=== PATIENT | male | born 1955 | race Caucasian/White ===

== ENCOUNTER → 2017-08-08 | Outpatient (CLI) | payer BC ==
[~2017-08-08] MED LIST: AMOX500T PO; ASPI81TA23 PO; BENZ100 PO; CALC1TAB87 PO; ECASA81 PO; HYDR-3580 PO; ZITH250T PO
[2017-08-08 09:52] LABS: PROTHROMBIN TIME - PATIENT 10.5 SEC (9.8-11.6)
[2017-08-08 11:00] LABS: BILIRUBIN, URINE NEG (NEG); BLOOD, URINE MOD (NEG); GLUCOSE,URINE NEG (NEG); KETONE, URINE NEG (NEG); NITRITE,URINE NEG (NEG); PH, URINE 5.5 (5.0-8.5); URINE COLOR YELLOW (YELLW/STRAW); URINE LEUKOCYTE ESTERASE NEG (NEG)
[2017-08-08 11:12] LABS: BACTERIA, URINE RARE /hpf; SQUAMOUS EPITHELIAL CELL URINE <1 /hpf (0-5)
== END ==
LOC: CPRE 09:05
PROVIDERS: ATTEND Orthopaedic Surgery
DX: Z01.812 Encounter for preprocedural laboratory examination (principal); M17.11 Unilateral primary osteoarthritis, right knee; M79.609 Pain in unspecified limb
CPT/HCPCS: 36415; 81001; 85610; 85730

== ENCOUNTER 2017-08-18 05:37 | Inpatient (IN) | payer BC ==
[~2017-08-18] VITALS: Ht 175.3 cm; Wt 95.3 kg
[~2017-08-18 05:37] MED LIST changes: -BENZ100 PO; -ECASA81 PO; -HYDR-3580 PO; -ZITH250T PO
[2017-08-18] MEDS ORDERED: FAT EMULSION 20% INJ 0 ML ONE (05:52)
[2017-08-18] MEDS ORDERED: ACETAMINOPHEN 1000 MG/100 ML 100 ML IV ONE (05:56)
[2017-08-18] MEDS ORDERED: BUPIVACAINE PF 0.75% DEX-WATER INJ 2 ML AMP ONE (05:57)
[2017-08-18] MEDS ORDERED: PROPOFOL 500 MG/50 ML INJ 100 ML ONE (05:58)
[2017-08-18 06:15] VITALS: PULSE 62
[2017-08-18] MEDS ORDERED: METOPROLOL TARTRATE 25 MG TAB PO PRN (06:15)
[2017-08-18] MEDS ORDERED: LACTATED RINGER'S 1000 ML IV PRN (06:15)
[2017-08-18] MEDS ORDERED: CHLORHEXIDINE GLUCONATE 2 % 1 PACK (2 CLOTHS) TOPICAL PRN (06:15)
[2017-08-18] MEDS ORDERED: CHLORHEXIDINE GLUCONATE 4% SOLN 120 ML BTL TOPICAL SCH (06:15)
[2017-08-18] MEDS ORDERED: POVIDONE IODINE 5% (ANTISEPSIS KIT) 4 APPLICATIONS EACH NARE PRN (06:15)
[2017-08-18] MEDS ORDERED: SODIUM CHLORID 0.9% 500 ML IV PRN (06:15)
[2017-08-18] MEDS ORDERED: ceFAZolin 2 GM PREMIX 50 ML IV SCH (06:15)
[2017-08-18] MEDS ORDERED: MIDAZOLAM HCL 2 MG/2 ML VIAL ONE (06:19)
[2017-08-18] MEDS ORDERED: BUPIVACAINE LIPOSOME PF 1.3% 20 ML VIAL ONE (06:20)
[2017-08-18] MEDS ORDERED: GENTAMICIN SULFATE 80 MG/2 ML VIAL ONE (06:25)
[2017-08-18] MEDS ORDERED: MIDAZOLAM HCL 5 MG/5 ML VIAL IV PUSH ONE (06:30)
--- NOTE | 2017-08-18 06:57 | HHI.FF ---
Face to Face Verification Diagnosis: (1) Status post total right knee replacement Physical Therapy Gait training Knee: Total knee, Protocol: Right, Gait training, Full weight bearing Right LE Weight Bearing: WB as tolerated Right LE Range of Motion: Active ROM (AROM, AAROM, PROM. Range of motion goal is 0 extension to 135 of flexion which is what was achieved in the operating room.) Nursing Nursing: Dressing changes Dressing Changes: Daily dressing change, Coverderm/Primapore I have seen patient Chris Choudhury on 08/18/17. My clinical findings support the need for the requested home health care services because: Ltd mobility - disease progression Limited ability to care for self High risk of falls I certify that my clinical findings support that this patient is homebound because: Post-op weakness Unsteady gait/balance Unsafe to leave home unassisted Willie Tafoya MD (Charles) August 18, 2017 06:57
[2017-08-18] MEDS ORDERED: ECASA81 PO (06:58)
[2017-08-18] MEDS ORDERED: ACETAMINOPHEN/HYDROcodone 325 MG/7.5 MG TAB PO PRN ×2 (07:00→09:00)
[2017-08-18] MEDS ORDERED: EXPAREL PERI-ARTICULAR INJECTION (TOTAL VOL. 60 ML) P-ARTICULR SCH ×2 (07:00)
[2017-08-18] MEDS ORDERED: TRANEXAMIC ACID IV SCH ×3 (07:00→11:00)
[2017-08-18] MEDS ORDERED: ZOLPIDEM TARTRATE 5 MG TAB PO PRN (07:00)
[2017-08-18] MEDS ORDERED: SODIUM CHLORIDE 0.9% IV SCH ×3 (07:00→11:00)
[2017-08-18] MEDS ORDERED: Post-op Orders (for Pharmacy) XX ONE (07:00)
--- NOTE | 2017-08-18 07:01 | HHI.FF ---
Face to Face Verification Nursing Additional Instructions Do not remove Dermabond Dwighto. I have seen patient Chris Choudhury on 08/18/17. My clinical findings support the need for the requested home health care services because: I certify that my clinical findings support that this patient is homebound because: Willie Tafoya MD (Charles) August 18, 2017 07:01
[2017-08-18] MEDS ORDERED: BUPIVACAINE LIPOSO PF 1.3% INJ 20 ML in SODIUM CHLORIDE 0.9% INJ 80 ML P-ARTICULR SCH (07:15)
[2017-08-18] MEDS ORDERED: FAMOTIDINE 20 MG/2 ML VIAL ONE (08:18)
[2017-08-18] MEDS ORDERED: MORPHINE SULFATE 4 MG/ML INJ IV PUSH PRN (09:00)
[2017-08-18] MEDS ORDERED: MAGNESIUM HYDROXIDE SUSP 30 ML CUP PO PRN (09:00)
[2017-08-18] MEDS ORDERED: ONDANSETRON ODT 4 MG TAB PO PRN (09:00)
[2017-08-18] MEDS ORDERED: PROPOFOL 500 MG/50 ML INJ 50 ML ONE (09:45)
[2017-08-18] MEDS ORDERED: HYDR-3580 PO (09:48)
--- NOTE | 2017-08-18 09:57 | PD.OP ---
Operative Report Date of Surgery: August 18, 2017 Preoperative Diagnosis: (1) Primary osteoarthritis of right knee Postoperative Diagnosis: (1) Primary osteoarthritis of right knee Procedure: Right total knee arthroplasty using [place] Triathlon prosthesis (noncemented). Anesthesia: Spinal with supplemental abductor canal block regional and local with Exparel Surgeon: Nam Tafoya MD Layboy Tender(s): RIGOBERTO Quinteros Operation and Findings: Indications and Findings: This 61-year-old man has had 4 years of progressive worsening of right knee pain due to arthritis. He is limited in his ambulation has difficulty with stairs. He has difficulty driving. He has difficulty standing from a seated position. He has tried anti-inflammatory agents analgesics, intra-articular, corticosteroid injections and activity modification without any benefit. Physical findings showed genuine varum with tenderness particularly in the medial compartment. There is also medial laxity and some crepitation. X-rays showed loss of articular cartilage to bone on bone on the PA flexion view with osteophytes and eburnation. Operative findings: There was tricompartmental arthritis particularly in the medial compartment but also in the patellofemoral and to a lesser extent lateral compartment. The prosthesis used was a [place] Triathlon prosthesis. The femur was a size 7, cruciate retaining, uncemented. The tibial baseplate was a size 7 Tritanium with a 9 mm cruciate retaining X3 polyethylene spacer. The patella was a size 38 mm asymmetric Tritanium backed. The patient was brought to the clean-air operating suite. A spinal anesthetic was administered as well as a regional anesthetic by adductor canal block. The position was supine with a small bolster under the hip on the operative side. A pneumatic tourniquet was applied to the upper thigh. The lower extremity was then prepped with alcohol, Hibiclens and ChloraPrep and draped in the usual manner with the knee draped free. An appropriate timeout procedure was carried out. An incision was made from about 3 fingerbreadths above the superior medial pole of patella down the tibial tubercle on the medial side. The incision was deepened through the subcutaneous tissue to the retinacular structures which were exposed medially and laterally. A medial retinacular incision was then made from the superior middle pole of patella down the tibial tubercle and up into the quadriceps tendon splitting it longitudinally and the medial one third. The patella was reflected. The infrapatellar fat pad was debulked. The anterior cruciate ligament was excised. Medial and lateral meniscectomies were initiated. Fenestrations were made in the distal femur and proximal tibia for intramedullary referencing guides. The distal femoral cutting guide and jig were then assembled for a 5, 8 mm cut. When this was fit position and placed cutting block was stabilized with pins. The jig was removed. The distal femoral cut was then completed with the oscillating saw. The sizing guide was then positioned in place along Whitesides line and the epicondylar axis and stabilized with pins. The femoral size was then determined as noted above. The 4-in-1 cutting block was then positioned in place. Anterior and posterior cuts were made followed by posterior and anterior chamfer cuts taking care to prevent injury to ligamentous structures. Osteophytes were then trimmed from the distal femur. A bone plug was then placed into the fenestration of the distal femur. The proximal tibia was then exposed. The medial and lateral meniscectomies were completed. The proximal tibial cutting guide was then positioned in place and stabilized with a pin for rotation. The depth of cut was then verified with a stylus off the lateral side. The cutting block was stabilized with pins. The jig was removed. The depth of cut was then verified and adjusted appropriately with the use of the spacer block. The proximal tibial cut was then made with the oscillating saw taking care to prevent injury to neurovascular and ligamentous structures. Proximal tibial bone was removed. Local anesthetic was administered with Exparel in the posterior capsule. The tibial baseplate trial was then positioned in place. After verifying the appropriate size, the base plate trial was positioned in place along with its spacer. The femoral component was then impacted into place. The alignment was checked. The tibial baseplate was then pinned in place on the tibia. Attention was directed to the patella. The patella drill guide was positioned in place for the appropriate sized patella. Patellar drilling was then carried out. The trial patella was positioned in place. The knee was taken through a range of motion which was easily 0 extension to 135. The patella trial was removed. The femoral drill holes were made. The femoral trials were removed. The tibial spacer was removed. A bone plug was placed into the proximal tibia. The tibial punch was impacted through the proximal tibial punch guide. This was all removed followed by placement of the tibial drill guide. The tibial drill holes were then made. The guide was removed. The cut ends of bone were then cleaned with pulse lavage. The tibial baseplate was then impacted into place and seated appropriately. The spacer was inserted. The the femoral component was then impacted into place and seated appropriately. The patella component was then seated with the patellar vice and tightened appropriately. The knee was taken through a range of motion which was comparable to the previous range of motion with excellent stability in flexion and extension and appropriate patellofemoral tracking. The remainder of the Exparel was then injected throughout the knee as a local anesthetic. Drains were brought out the superior lateral aspect of the suprapatellar pouch. Wound closure then commenced using 0 Vicryl interrupted [id number] sutures for the capsular and fascial structures, 2-0 Vicryl interrupted simple sutures with buried knots for the subcutaneous tissues and 4- 0 Monocryl, continuous subcuticular closure for the skin. The wound was then dressed with Dermabond Prineo followed by Optifoam silver impregnated dressing. Sterile soft roll with a cooling pad and Fam bandage from the base of the toes to mid thigh were then applied. Patient was then transferred from the operating room to the recovery room in satisfactory condition having tolerated procedure well. Counts are correct. Specimens: None. Estimated blood loss: 300 mL Willie Tafoya MD (Charles) August 18, 2017 09:57
[2017-08-18] MEDS ORDERED: DO NOT ADM ANY ANTICOAGULANT DRUGS PRN (10:30)
[2017-08-18] MEDS: LACTATED RINGER'S 1000 ML INJ 1,000 ML IV SCH ×2 (10:48→20:44)
[2017-08-18 11:30] VITALS: BP 157/98; PULSE 79; RESP 16; TEMP 98.3; O2SAT 95
--- NOTE | 2017-08-18 11:33 | RADRPT ---
EXAM DATE/TIME: 08/18/2017 11:55 [facility] COMPARISON: No previous studies available for comparison. INDICATIONS : Post op right knee surgery MEDICAL HISTORY : None. SURGICAL HISTORY : None. ENCOUNTER: Initial ACUITY: 1 day PAIN SCORE: 4/10 LOCATION: Right knee FINDINGS: Postsurgical features of right knee arthroplasty. Arthroplasty components are in anatomic alignment. No significant acute bony fracture. Immediate postsurgical soft tissue features. CONCLUSION: 1. Status post right knee arthroplasty in anatomic alignment without significant acute bony fracture. Tone Steven MD on August 18, 2017 at 11:30 Board Certified Radiologist. This report was verified electronically.
[2017-08-18 12:00] VITALS: BP 157/98; PULSE 79; RESP 16; TEMP 98.3; O2SAT 95
[2017-08-18] MEDS ORDERED: ePHEDrine/NS 25 MG/5 ML SYRINGE IV ONE (12:00)
[2017-08-18] MEDS ORDERED: DEXAMETHASONE SOD PHOS 4 MG/ML VIAL IV ONE (12:00)
[2017-08-18] MEDS ORDERED: LACTATED RINGER'S 1000 ML INJ 1,000 ML IV ONE (12:00)
[2017-08-18] MEDS ORDERED: PROPOFOL 200 MG/20 ML AMP IV ONE (12:00)
[2017-08-18] MEDS ORDERED: LIDOCAINE HCL 1% PF 5 ML SYRINGE OTHER ONE (12:00)
--- NOTE | 2017-08-18 12:54 | PD.CONS ---
HPI Service [facility] Consult Requested By Dr. Tafoya Reason for Consult Opinion and recommendation on patient's elevated blood pressure. Primary Care Physician No Primary Care Physician Diagnoses: History of Present Illness 61-year-old white male with history of osteoarthritis who was had no significant past medical history has had long history of right knee pain despite conservative treatment electively underwent a right total knee arthroplasty today. He denies a history of constipation or any previous history of blood in the stools or black tarry stools. He has no active complaints at this time. He denies a history of headaches and denies any history of elevated blood pressures or hypertension in the past. Review of Systems Constitutional: DENIES: Fatigue, Fever, Chills, Change in appetite Endocrine: DENIES: Heat/cold intolerance Eyes: DENIES: Blurred vision, Eye pain, Vision loss Ears, nose, mouth, throat: DENIES: Hearing loss, Nasal discharge, Throat pain, Ear Pain, Sinus Pain Respiratory: DENIES: Cough, Shortness of breath Cardiovascular: DENIES: Chest pain, Palpitations, Dyspnea on Exertion, Lower Extremity Edema Gastrointestinal: DENIES: Abdominal pain, Black stools, Bloody stools, Constipation, Diarrhea, Nausea, Vomiting Musculoskeletal: COMPLAINS OF: Joint pain (Right knee pain as described in HPI) , DENIES: Muscle aches, Stiffness Integumentary: DENIES: Rash Hematologic/lymphatic: DENIES: Bruising, Lymphadenopathy Immunologic/allergic: DENIES: Eczema Neurologic: DENIES: Headache, Localized weakness, Paresthesias Psychiatric: DENIES: Anxiety, Depression, Suicidal Ideation Past Family Social History Allergies: Coded Allergies: No Known Allergies (Unverified , 08/08/17) Past Medical History Early cataracts osteoarthritis Past Surgical History Right knee arthroscopic surgery Right shoulder surgery Left hammertoe Reported Medications Aspirin 81 mg p.o. daily Calcium supplements 1 p.o. daily Cody one every 4 hours as needed for pain Family History Father had prostate problems Hypertension Diabetes mellitus End-stage renal disease Social History Does not smoke cigarettes quit when he was 33 years Social alcohol use Physical Exam Vital Signs Vital Signs Date Time Temp Pulse Resp B/P (MAP) Pulse Ox O2 Delivery O2 Flow Rate FiO2 08/18/17 12:00 98.3 79 16 157/98 (117) 95 08/18/17 11:30 98.3 79 16 157/98 (117) 95 08/18/17 11:00 97.5 78 14 148/89 (108) 98 Nasal Cannula 2 08/18/17 10:45 83 15 146/90 (108) 98 Nasal Cannula 3 08/18/17 10:30 85 20 141/86 (104) 98 Simple Mask 6 08/18/17 10:25 97.5 78 20 136/85 (102) 96 Simple Mask 6 08/18/17 06:15 62 08/18/17 06:15 98 Nasal Cannula 2 08/18/17 06:08 58 58 141/88 (105) 97 Physical Exam GENERAL: This is a well-nourished, well-developed patient, in no apparent distress. SKIN: No rashes, ecchymoses or lesions. Cool and dry. HEAD: Atraumatic. Normocephalic. No temporal or scalp tenderness. EYES: Pupils equal round and reactive. Extraocular motions intact. No scleral icterus. No injection or drainage. ENT: Nose without bleeding, purulent drainage or septal hematoma. Throat without erythema, tonsillar hypertrophy or exudate. Uvula midline. Airway patent. NECK: Trachea midline. No JVD or lymphadenopathy. Supple, nontender, no meningeal signs. CARDIOVASCULAR: Regular rate and rhythm without murmurs, gallops, or rubs. RESPIRATORY: Clear to auscultation. Breath sounds equal bilaterally. No wheezes , rales, or rhonchi. GASTROINTESTINAL: Abdomen soft, non-tender, nondistended. No hepato-splenomegaly , or palpable masses. No guarding. MUSCULOSKELETAL: Extremities without clubbing, cyanosis, or edema. No joint tenderness, effusion, or edema noted. No calf tenderness. Negative Homans sign bilaterally. NEUROLOGICAL: Awake and alert. Cranial nerves II through XII intact. Motor and sensory grossly within normal limits. Five out of 5 muscle strength in all muscle groups. Normal speech. Imaging Last Impressions Knee X-Ray 08/18/17 0651 Signed Impressions: Service Date/Time: Friday, August 18, 2017 11:55 - CONCLUSION: 1. Status post right knee arthroplasty in anatomic alignment without significant acute bony fracture. Tone Steven MD Assessment and Plan Assessment and Plan 1. Right total knee arthroplasty- continue postoperative care, pain control, physical therapy 2. Elevated blood pressure likely due to pain, will continue monitor postoperatively, patient states he has no history of hypertension. Will provide IV Vasotec as needed further recommendations based on blood pressure trends. 3. DVT prophylaxis -per orthopedic surgery. Chen Simmons MD August 18, 2017 12:54
[2017-08-18] MEDS ORDERED: ENALAPRILAT 1.25 MG/ML VIAL IV PUSH PRN (13:00)
[2017-08-18] MEDS: KETOROLAC TROMETHAMINE 30 MG/ML (IVP) VIAL IVP SCH ×2 (13:47→20:44)
[2017-08-18 16:25] VITALS: BP 143/82; PULSE 81; RESP 17; TEMP 98.2; O2SAT 94
[2017-08-18 19:22] VITALS: BP 140/87; PULSE 74; RESP 18; TEMP 97.9; O2SAT 95
[2017-08-18 23:16] VITALS: BP 135/84; PULSE 79; RESP 18; TEMP 98.3; O2SAT 94
[2017-08-19] MEDS: KETOROLAC TROMETHAMINE 30 MG/ML (IVP) VIAL IVP SCH ×3 (01:10→12:43)
[2017-08-19 04:05] VITALS: BP 145/80; PULSE 79; RESP 18; TEMP 98; O2SAT 95
[2017-08-19 05:55] LABS: HEMOGLOBIN 13.4 GM/DL (13.0-17.0)
--- NOTE | 2017-08-19 06:05 | PD.ORT.PN ---
Subjective Post Op Day #: 1 Subjective Remarks He is doing well. He has no real complaints today. He is anxious to go home. Range of Motion 0 extension to 88 of flexion. Distance Walked 155 feet with physical therapy. Objective Vitals Vital Signs Date Time Temp Pulse Resp B/P (MAP) Pulse Ox O2 Delivery O2 Flow Rate FiO2 08/19/17 04:05 98.0 79 18 145/80 (101) 95 08/18/17 23:16 98.3 79 18 135/84 (101) 94 08/18/17 19:22 97.9 74 18 140/87 (104) 95 08/18/17 16:25 98.2 81 17 143/82 (102) 94 08/18/17 15:27 20 08/18/17 12:00 98.3 79 16 157/98 (117) 95 08/18/17 11:30 98.3 79 16 157/98 (117) 95 08/18/17 11:00 97.5 78 14 148/89 (108) 98 Nasal Cannula 2 08/18/17 10:45 83 15 146/90 (108) 98 Nasal Cannula 3 08/18/17 10:30 85 20 141/86 (104) 98 Simple Mask 6 08/18/17 10:25 97.5 78 20 136/85 (102) 96 Simple Mask 6 08/18/17 06:15 62 08/18/17 06:15 98 Nasal Cannula 2 08/18/17 06:08 58 58 141/88 (105) 97 I/O 08/18/17 08/18/17 08/18/17 08/19/17 08/19/17 08/19/17 07:00 15:00 23:00 07:00 15:00 23:00 Intake Total 1400 ml 750 ml Output Total 340 ml 180 ml 85 ml Balance 1060 ml 570 ml -85 ml Intake Oral 750 ml Other 1400 ml Output Drainage Total 40 ml 180 ml 85 ml Estimated Blood Loss 300 ml # Voids 2 # Bowel Movements 0 Result Diagram: 08/19/17 0405 Imaging Last 24 hours Impressions Knee X-Ray 08/18/17 0651 Signed Impressions: Service Date/Time: Friday, August 18, 2017 11:55 - CONCLUSION: 1. Status post right knee arthroplasty in anatomic alignment without significant acute bony fracture. Tone Steven MD Objective Remarks He is resting comfortably, supine in bed, in the [facility]. His dressing is dry and intact. The neurovascular status is intact. Assessment & Plan Ortho Post Op Day #: 1 Problem List: (1) Primary osteoarthritis of right knee ICD Codes: M17.11 - Unilateral primary osteoarthritis, right knee Status: Resolved (2) Status post total right knee replacement ICD Codes: Z96.651 - Presence of right artificial knee joint Plan: Continue postop care and PT. Assessment and Plan Condition: Good. Orthopedically stable. DVT prophylaxis: TEDs, aspirin, sequentials. Discharge plans: Home with home health care. An appointment was scheduled through the office. Prescriptions: [place] 7.5/325 Willie Tafoya MD (Charles) August 19, 2017 06:05
[2017-08-19 08:00] VITALS: BP 132/72; PULSE 67; RESP 16; TEMP 98.4; O2SAT 96
[2017-08-19] MEDS ORDERED: ASPIRIN EC 81 MG TABEC PO SCH (09:30)
[2017-08-19] MEDS: LACTATED RINGER'S 1000 ML INJ 1,000 ML IV SCH (10:00)
[2017-08-19 12:00] VITALS: BP 131/74; PULSE 66; RESP 16; TEMP 98.2; O2SAT 97
--- NOTE | 2017-08-19 12:28 | HHI.PR ---
Subjective Remarks Patient sitting on side of bed. Just walked the aguayo with PT. Denies any chest pain or sob. Objective Vitals Vital Signs Date Time Temp Pulse Resp B/P (MAP) Pulse Ox O2 Delivery O2 Flow Rate FiO2 08/19/17 12:00 98.2 66 16 131/74 (93) 97 08/19/17 08:00 98.4 67 16 132/72 (92) 96 08/19/17 04:05 98.0 79 18 145/80 (101) 95 08/18/17 23:16 98.3 79 18 135/84 (101) 94 08/18/17 19:22 97.9 74 18 140/87 (104) 95 08/18/17 16:25 98.2 81 17 143/82 (102) 94 08/18/17 15:27 20 I/O 08/18/17 08/18/17 08/18/17 08/19/17 08/19/17 08/19/17 07:00 15:00 23:00 07:00 15:00 23:00 Intake Total 1400 ml 750 ml 460 ml Output Total 340 ml 180 ml 85 ml 50 ml Balance 1060 ml 570 ml 375 ml -50 ml Intake Oral 750 ml 360 ml IV Total 100 ml Other 1400 ml Output Drainage Total 40 ml 180 ml 85 ml 50 ml Estimated Blood Loss 300 ml # Voids 2 2 # Bowel Movements 0 0 Result Diagram: 08/19/17 0405 Objective Remarks SKIN: Warm and dry. dressing dry and intact CARDIOVASCULAR: Regular rate and rhythm. RESPIRATORY: No accessory muscle use. Clear to auscultation. Breath sounds equal bilaterally. GASTROINTESTINAL: Abdomen soft, non-tender, nondistended. Hepatic and splenic margins not palpable. MUSCULOSKELETAL: Extremities without clubbing, cyanosis, or edema. No obvious deformities. NEUROLOGICAL: Awake and alert. No obvious cranial nerve deficits. Motor grossly within normal limits. Normal speech. PSYCHIATRIC: Appropriate mood and affect; insight and judgment normal. A/P Assessment and Plan Right total knee arthroplasty - continue postoperative care, pain control, physical therapy per ortho Elevated blood pressure likely due to pain, resolved -Will provide IV Vasotec as needed further recommendations based on blood pressure trends. DVT prophylaxis -per orthopedic surgery Hospitalist will sign off, please re-consult if needed Discharge Planning per ortho Rachael Khan August 19, 2017 12:28
--- NOTE | 2017-08-19 12:34 | HHI.DS ---
Discharge Summary Admission Date August 18, 2017 at 05:37 Discharge Date: August 19, 2017 Admitting Diagnosis Primary osteoarthritis, right knee. Diagnosis: (1) Primary osteoarthritis of right knee Diagnosis: Principal ICD Codes: M17.11 - Unilateral primary osteoarthritis, right knee Status: Resolved (2) Status post total right knee replacement Diagnosis: Principal ICD Codes: Z96.651 - Presence of right artificial knee joint Procedures Right total knee arthroplasty using [place] Triathlon prosthesis (uncemented) on 08/18/2017 Brief History This is a 61 year old male patient CBC/BMP: 08/19/17 0405 Significant Findings Laboratory Tests Test 08/19/17 04:05 Imaging Last 72 hours Impressions Knee X-Ray 08/18/17 0651 Signed Impressions: Service Date/Time: Friday, August 18, 2017 11:55 - CONCLUSION: 1. Status post right knee arthroplasty in anatomic alignment without significant acute bony fracture. Tone Steven MD PE at Discharge He is resting comfortably, supine in bed, in the [facility]. His dressing is dry and intact. The neurovascular status is intact. Hospital Course The patient was admitted as noted above. The above noted operative procedure was carried out that day. Preoperatively prophylactic antibiotics were administered Ancef according to protocol. These were continued postoperatively. The patient also received tranexamic acid to help with hemostasis according to protocol. In the postanesthesia care unit a continuous passive motion device was initiated. Also initiated were mechanical methods of DVT prophylaxis in the form of LINDSEY stockings and sequentials. Physical therapy was initiated on the day of surgery. On postoperative day #1 physical therapy continued. The use of the continuous passive motion device continued. DVT prophylaxis with aspirin 81 mg was initiated at this time. The patient continued physical therapy throughout the hospitalization. The distance walked and range of motion improved throughout the hospitalization. The patient was discharged on postoperative day 1 with the disposition being to home with home health care. An appointment for follow-up was made prior to admission. Pt Condition on Discharge: Good Discharge Disposition: Disch w/ Home Health Serv Discharge Instructions Diet Instructions: As Tolerated, No Restrictions Activities You Can Perform: Full Weight Bearing, Shower Only-No Bath Activities to Avoid: Lifting/Bending, Strenuous Activity, Bathing, Driving Follow up Referrals: Orthopedics with Willie Tafoya MD (Charles) New Medications: Aspirin DR (Aspirin DR) 81 Mg Tabdr 81 MG PO BID for Prevent Blood Clot for 30 Days, #60 TAB Hydrocodone/Acetaminophen (Hydrocodone-Acetamin 7.5-325) 7.5 Mg-325 Mg Tablet 1 TAB PO Q4H PRN for PAIN SCALE 1 TO 10, #30 TAB Continued Medications: Calcium Carbonate-Cholecalciferol (Calcium 600 with Vitamin D) 600-400 mg-Unit Tab 1 TAB PO DAILY for Calcium Supplement, TAB 0 Refills Discontinued Medications: Amoxicillin (Amoxicillin) 500 Mg Tab 500 MG PO BID for Infection, TAB [address] (Aspirin EC) 81 Mg Tabdr 81 MG PO DAILY, TAB 0 Refills Willie Tafoya MD (Charles) August 19, 2017 12:34
[2017-08-19] MEDS ORDERED: DOCUSATE SODIUM 100 MG CAP PO SCH (21:00)
== END 2017-08-19 14:08 | disposition home health service (06) | DRG 470 ==
LOC: HSDI 05:37 → N06B 11:13
PROVIDERS: ADMIT Orthopaedic Surgery; ATTEND Orthopaedic Surgery
PROC: 3E0T3BZ Introduction of Anesthetic Agent into Peripheral Nerves and Plexi, Percutaneous Approach (ICD-10-PCS; 2017-08-18)
PROC: 0SRC0JA Replacement of Right Knee Joint with Synthetic Substitute, Uncemented, Open Approach (ICD-10-PCS; principal; 2017-08-18 06:42)
DX: M17.11 Unilateral primary osteoarthritis, right knee (principal); M25.761 Osteophyte, right knee; Z87.891 Personal history of nicotine dependence; R03.0 Elevated blood-pressure reading, without diagnosis of hypertension
CPT/HCPCS: 73560; 85014; 85018; 86850; 86900; 86901; 94150; C1776; C9290; J0131; J0690; J1100; J1580; J1885; J2250; J3010; J7120